=== PATIENT | female | born 1955 | race Caucasian/White ===

== ENCOUNTER → 2020-01-23 09:00 | Outpatient (CLI) | payer OTHER, SELFPAY ==
--- NOTE | 2020-01-23 | DI.MG.S_ITS ---
BILATERAL DIGITAL SCREENING MAMMOGRAM 3D/2D WITH CAD: 01/23/2020 CLINICAL: Routine screening. Family history of breast cancer. Comparison is made to exams dated: 01/19/2018 mammogram, 10/11/2014 mammogram, and 06/11/2013 mammogram - [facility]. The tissue of both breasts is heterogeneously dense. This may lower the sensitivity of mammography. Current study was also evaluated with a Computer Aided Detection (CAD) system. No significant masses, calcifications, or other findings are seen in either breast. There has been no significant interval change. IMPRESSION: NEGATIVE There is no mammographic evidence of malignancy. A 1 year screening mammogram is recommended. This exam was interpreted at Station ID: [id number]. NOTE: For mammograms, a report in lay terms will be sent to the patient. Approximately 15% of breast malignancies will not be visualized mammographically. In the management of a palpable breast mass, a negative mammogram must not discourage biopsy of a clinically suspicious lesion. Electronically Signed By: Torie pastor/[place]:01/23/2020 10:31:38 letter sent: Normal Exam ACR BI-RADS Category 1: Negative 3341F
== END ==
PROVIDERS: PCP Physician Assistant Medical; Referring Provider Physician Assistant Medical; Visit Provider Physician Assistant Medical
DX: Z12.31 Encounter for screening mammogram for malignant neoplasm of breast (principal); Z80.3 Family history of malignant neoplasm of breast
CPT/HCPCS: 77063; 77067

== ENCOUNTER → 2020-08-31 11:38 | Outpatient (CLI) | payer OTHER, SELFPAY | PROVIDERS: PCP Physician Assistant Medical; Visit Provider Nurse Practitioner | DX: R30.0 Dysuria (principal) | CPT/HCPCS: 87086 ==

== ENCOUNTER → 2021-03-28 09:17 | Outpatient (CLI) | payer OTHER, SELFPAY ==
--- NOTE | 2021-03-28 | DI.MG.S_ITS ---
BILATERAL DIGITAL SCREENING MAMMOGRAM 3D/2D WITH CAD: 03/28/2021 CLINICAL: Routine screening. Family history of breast cancer. Comparison is made to exams dated: 01/23/2020 mammogram, 01/19/2018 mammogram, 10/11/2014 mammogram, 06/11/2013 mammogram, and 04/07/2012 mammogram - [facility]. The tissue of both breasts is heterogeneously dense. This may lower the sensitivity of mammography. Current study was also evaluated with a Computer Aided Detection (CAD) system. No significant masses, calcifications, or other findings are seen in either breast. There has been no significant interval change. IMPRESSION: NEGATIVE There is no mammographic evidence of malignancy. A 1 year screening mammogram is recommended. This exam was interpreted at Station ID: [id number]. NOTE: For mammograms, a report in lay terms will be sent to the patient. Approximately 15% of breast malignancies will not be visualized mammographically. In the management of a palpable breast mass, a negative mammogram must not discourage biopsy of a clinically suspicious lesion. Electronically Signed By: Isidro rodriguez/[place]:03/30/2021 08:08:07 letter sent: Normal Exam ACR BI-RADS Category 1: Negative 3341F
== END ==
PROVIDERS: PCP Physician Assistant Medical; Referring Provider Physician Assistant Medical; Visit Provider Physician Assistant Medical
DX: Z12.31 Encounter for screening mammogram for malignant neoplasm of breast (principal); Z80.3 Family history of malignant neoplasm of breast
CPT/HCPCS: 77063; 77067

== ENCOUNTER → 2022-04-30 14:15 | Outpatient (CLI) | payer OTHER, SELFPAY ==
--- NOTE | 2022-04-30 | DI.MG.S_ITS ---
BILATERAL DIGITAL SCREENING MAMMOGRAM 3D/2D WITH CAD: 04/30/2022 CLINICAL: Routine screening. Family history of breast cancer. Comparison is made to exams dated: 03/28/2021 mammogram, 01/23/2020 mammogram, and 01/19/2018 mammogram - [facility]. The tissue of both breasts is heterogeneously dense. This may lower the sensitivity of mammography. Current study was also evaluated with a Computer Aided Detection (CAD) system. There is an oval asymmetry with a circumscribed margin in the right breast middle depth central to the nipple seen on the craniocaudal view only. No other significant masses, calcifications, or other findings are seen in either breast. IMPRESSION: INCOMPLETE: NEEDS ADDITIONAL IMAGING EVALUATION The oval asymmetry in the right breast is indeterminate. Additional views with possible ultrasound are recommended. This exam was interpreted at Station ID: [id number]. NOTE: For mammograms, a report in lay terms will be sent to the patient. Approximately 15% of breast malignancies will not be visualized mammographically. In the management of a palpable breast mass, a negative mammogram must not discourage biopsy of a clinically suspicious lesion. Electronically Signed By: Elizabeth jacome/[place]:04/30/2022 15:19:36 letter sent: Additional Imaging Needed ACR BI-RADS Category 0: Incomplete 3340F
== END ==
PROVIDERS: PCP Physician Assistant Medical; Referring Provider Internal Medicine; Visit Provider Physician Assistant Medical
DX: Z12.31 Encounter for screening mammogram for malignant neoplasm of breast (principal); Z80.3 Family history of malignant neoplasm of breast
CPT/HCPCS: 77063; 77067

== ENCOUNTER → 2022-05-27 12:54 | Outpatient (CLI) | payer OTHER, SELFPAY ==
--- NOTE | 2022-05-27 | DI.MG.S_ITS ---
UNILATERAL RIGHT DIGITAL DIAGNOSTIC MAMMOGRAM 3D/2D WITH ADDITIONAL VIEWS: 05/27/2022 CLINICAL: Additional evaluation requested from prior study. Comparison is made to exams dated: 04/30/2022 mammogram, 03/28/2021 mammogram, and 01/23/2020 mammogram - [facility]. The tissue of right breast is heterogeneously dense. This may lower the sensitivity of mammography. There is an oval asymmetry with a circumscribed margin in the right breast middle depth central to the nipple seen on the craniocaudal view only. This is less prominent. No other significant masses or calcifications are seen in the breast. IMPRESSION: INCOMPLETE: NEEDS ADDITIONAL IMAGING EVALUATION The oval asymmetry in the right breast has decreased in conspicuity and size on today's imaging, but remains indeterminate. An ultrasound is recommended for further evaluation and is scheduled to immediately follow this examination. Based on Tyrer-Cuzick model (a risk assessment model), the patient's lifetime risk is 28.2% and her 10 year risk is 13.9%. If a patient has an elevated risk, a more comprehensive evaluation should be considered and/or a referral to a genetic counselor. The [employer], [employer], and NCCN Guidelines advise the consideration of Breast MRI as an adjunct to screening mammography in patients whose Lifetime risk to develop breast cancer is 20% or higher. This exam was interpreted at Station ID: [id number]. NOTE: For mammograms, a report in lay terms will be sent to the patient. Approximately 15% of breast malignancies will not be visualized mammographically. In the management of a palpable breast mass, a negative mammogram must not discourage biopsy of a clinically suspicious lesion. Electronically Signed By: Brady Aguirre M.D. aty/:05/27/2022 14:34:03 ACR BI-RADS Category 0: Incomplete 3340F
--- NOTE | 2022-05-27 | DI.US.S_ITS ---
LIMITED ULTRASOUND OF RIGHT BREAST: 05/27/2022 CLINICAL: Patient returns for additional imaging over a suspected mass in the right breast. No prior exams were available for comparison. Color flow and real-time ultrasound of the right breast 6-9 o'clock region were performed. Cunha scale images of the real-time examination were reviewed. There are retroareolar ductal ectasia and a more prominent dilated duct in the right breast at 9 o'clock middle depth approximately 7cm from the nipple. This dilated duct displays internal echoes. Color flow imaging demonstrates that there is no vascularity present. This finding may or may not correlate with mammographic findings described in comparison exams. IMPRESSION: PROBABLY BENIGN The dilated duct in the right breast may correlate with oval asymmetry in the right breast and is probably benign. A follow-up right mammogram with possible right ultrasound in 6 months is recommended to demonstrate stability. Findings and recommendations were conveyed to the patient during today's evaluation. This exam was interpreted at Station ID: [id number]. Electronically Signed By: Brady hinkle/:05/27/2022 14:47:09 letter sent: Followup Recommended Ultrasound BI-RADS: 3 Probably benign
== END ==
PROVIDERS: PCP Physician Assistant Medical; Referring Provider Physician Assistant Medical; Visit Provider Physician Assistant Medical
DX: R92.8 Other abnormal and inconclusive findings on diagnostic imaging of breast (principal); N64.89 Other specified disorders of breast; N60.41 Mammary duct ectasia of right breast
CPT/HCPCS: 76642; 77065; G0279

== ENCOUNTER → 2023-02-22 09:29 | Outpatient (CLI) | payer OTHER, SELFPAY ==
--- NOTE | 2023-02-22 | DI.MG.S_ITS ---
BILATERAL DIGITAL DIAGNOSTIC MAMMOGRAM 3D/2D: 02/22/2023 CLINICAL: Short term follow up, due bilateral. Comparison is made to exams dated: 05/27/2022 mammogram, 04/30/2022 mammogram, 03/28/2021 mammogram, 05/27/2022 ultrasound, and 01/23/2020 mammogram - [facility]. Both breasts are heterogeneously dense, which may obscure small masses (category c / 51-75% glandular tissue). There is an asymmetry in the right breast middle depth central to the nipple seen on the craniocaudal view only. This is not significantly changed. No other significant masses, calcifications, or other findings are seen in either breast. IMPRESSION: PROBABLY BENIGN The asymmetry in the right breast is probably benign. A follow-up mammogram in 6 months is recommended to demonstrate continued stability. Based on Tyrer-Cuzick model (a risk assessment model), the patient's lifetime risk is 27.3% and her 10 year risk is 13.9%. If a patient has an elevated risk, a more comprehensive evaluation should be considered and/or a referral to a genetic counselor. The [place] [employer], [employer] [place], and NCCN Guidelines advise the consideration of Breast MRI as an adjunct to screening mammography in patients whose Lifetime risk to develop breast cancer is 20% or higher. This exam was interpreted at Station ID: [id number]. NOTE: For mammograms, a report in lay terms will be sent to the patient. Approximately 15% of breast malignancies will not be visualized mammographically. In the management of a palpable breast mass, a negative mammogram must not discourage biopsy of a clinically suspicious lesion. Electronically Signed By: Isidro Moreno M.D. [facility]/:02/22/2023 10:01:55 letter sent: Followup Recommended ACR BI-RADS Category 3: Probably benign 3343F
== END ==
PROVIDERS: PCP Physician Assistant Medical; Referring Provider Physician Assistant Medical; Visit Provider Physician Assistant Medical
DX: R92.8 Other abnormal and inconclusive findings on diagnostic imaging of breast (principal); N64.89 Other specified disorders of breast
CPT/HCPCS: 77066; G0279

== ENCOUNTER → 2023-07-11 12:48 | Outpatient (CLI) | payer OTHER, SELFPAY ==
--- NOTE | 2023-07-11 | DI.RAD.S_ITS ---
Bone Density Report Name: LUIS ARMANDO FLOR Age: 67 Sex: Female Ethnicity: White Date of : 1955 Indication: postmenopausal; screening for osteoporosis; Referring Provider: SUDHA SLATER Study: Bone densitometry was performed. Exam Date: July 11, 2023 Accession number: [id number] Bone Density: Region BMD T-score Z-score Classification AP Spine(L1-L4) 0.713 -3.0 -1.2 Osteoporosis Femoral Neck (Left) 0.674 -1.6 0.0 Osteopenia Total Hip (Left) 0.786 -1.3 0.0 Osteopenia Femoral Neck (Right) 0.567 -2.5 -1.0 Osteoporosis Total Hip (Right) 0.682 -2.1 -0.9 Osteopenia Total Hip Mean 0.734 -1.7 -0.5 Osteopenia World Health Organization criteria for BMD impression classify patients as: Normal (T-score at or above -1.0), Osteopenia (T-score between -1.0 and -2.5), or Osteoporosis (T-score at or below -2.5). 10-year Fracture Risk: FRAX not reported because: Some T-score for Spine Total or Hip Total or Femoral Neck at or below -2.5 Impression: The patient has osteoporosis, based on the Total Spine T-score. Discussion: INCREASED RISK OF FRACTURE. BONE DENSITY IS UNDESIRABLY LOW AT ONE OR MORE SKELETAL SITES, CONSISTENT WITH POSTMENOPAUSAL OSTEOPOROSIS. This patient's lowest T-score meets the World Health Organization's (WHO) criteria for osteoporosis at one or more sites (T-score -2.5 or below). In untreated patients, the risk of osteoporotic fracture increases approximately two-fold for each 1.0 SD decrease in T-score. Low bone density is not the only risk factor for fracture; also consider factors such as patient's age, frailty or poor health, risk of falling, risk of injury, previous osteoporotic fracture, family history of osteoporosis, cigarette smoking, low body weight, etc. Not everyone with low bone mineral density has osteoporosis; osteomalacia and other metabolic bone disorders should also be considered. Patients who have osteoporosis should be evaluated for specific diseases and conditions (secondary causes) that may cause or contribute to bone loss. The [place] [employer] Endocrinologists (AACE) and National Osteoporosis Foundation (NOF) recommend pharmacologic intervention for all postmenopausal women whose T-score is in this range. The patient should follow a healthful lifestyle (good nutrition with adequate calcium and vitamin D, and appropriate weight-bearing exercise). Follow-Up: Consider a repeat BMD and Vertebral Fracture Assessment (VFA) exam in 2 years or sooner if medically necessary, to reassess this patient's status. Reported by: FLORIDA MELENDEZ M.D. on 07/11/2023 1:13:00 PM.
== END ==
PROVIDERS: PCP Physician Assistant Medical; Referring Provider Physician Assistant Medical; Visit Provider Physician Assistant Medical
DX: Z78.0 Asymptomatic menopausal state (principal); Z13.820 Encounter for screening for osteoporosis; M81.0 Age-related osteoporosis without current pathological fracture
CPT/HCPCS: 77080

== ENCOUNTER → 2023-09-09 09:35 | Outpatient (CLI) | payer OTHER, SELFPAY ==
--- NOTE | 2023-09-09 | DI.MG.S_ITS ---
UNILATERAL RIGHT DIGITAL DIAGNOSTIC MAMMOGRAM 3D/2D: 09/09/2023 CLINICAL: Patient returns for a 6 month follow up of the right breast. Comparison is made to exams dated: 02/22/2023 mammogram, 05/27/2022 mammogram, 04/30/2022 mammogram, and 03/28/2021 mammogram - [facility]. The right breast is heterogeneously dense, which may obscure small masses (category c / 51-75% glandular tissue). There is a stable asymmetry in the right breast middle depth central to the nipple seen on the craniocaudal view only. No other significant masses or calcifications are seen in the breast. IMPRESSION: INCOMPLETE: NEEDS ADDITIONAL IMAGING EVALUATION The stable asymmetry in the right breast is indeterminate. A targeted ultrasound of the right breast is recommended and will be performed immediately following this exam. Based on Tyrer-Cuzick model (a risk assessment model), the patient's lifetime risk is 27.3% and her 10 year risk is 13.9%. If a patient has an elevated risk, a more comprehensive evaluation should be considered and/or a referral to a genetic counselor. The [place] [employer], [employer], and NCCN Guidelines advise the consideration of Breast MRI as an adjunct to screening mammography in patients whose Lifetime risk to develop breast cancer is 20% or higher. This exam was interpreted at Station ID: [id number]. NOTE: For mammograms, a report in lay terms will be sent to the patient. Approximately 15% of breast malignancies will not be visualized mammographically. In the management of a palpable breast mass, a negative mammogram must not discourage biopsy of a clinically suspicious lesion. Electronically Signed By: Torie Whitt M.D. lk/:09/09/2023 10:20:23 ACR BI-RADS Category 0: Incomplete 3340F
--- NOTE | 2023-09-09 | DI.US.S_ITS ---
ULTRASOUND OF RIGHT BREAST: 09/09/2023 CLINICAL: Patient returns today to evaluate a focal asymmetry in the right breast. Comparison is made to exams dated: 09/09/2023 mammogram, 02/22/2023 mammogram, 05/27/2022 ultrasound, 05/27/2022 mammogram, 04/30/2022 mammogram, and 03/28/2021 mammogram - [facility]. Ultrasound of the right breast was performed on the area of interest. Cunha scale images of the real-time examination were reviewed. There is a stable dilated duct in the right breast at 9 o'clock middle depth. Color flow imaging demonstrates that there is no vascularity present. This may correspond with the mammographic abnormality. IMPRESSION: PROBABLY BENIGN The stable dilated duct in the right breast is probably benign. A follow-up mammogram and an ultrasound in 12 months is recommended. This exam was interpreted at Station ID: [id number]. Electronically Signed By: Torie pastor/:09/09/2023 10:57:22 letter sent: Followup Recommended Ultrasound BI-RADS: 3 Probably benign
== END ==
PROVIDERS: PCP Physician Assistant Medical; Referring Provider Physician Assistant Medical; Visit Provider Physician Assistant Medical
DX: R92.8 Other abnormal and inconclusive findings on diagnostic imaging of breast (principal); N64.89 Other specified disorders of breast
CPT/HCPCS: 76642; 77065; G0279

== ENCOUNTER 2023-12-03 19:18 | Emergency (ER) | payer OTHER, SELFPAY ==
[2023-12-03 19:21] VITALS: BP 163/78; PULSE 113; RESP 16; TEMP 36.8; O2SAT 98; BMI 21.9
[2023-12-03] MEDS: ONDANSETRON 4 MG ODT SL (19:38)
[2023-12-03] MEDS: ONDANSETRON 4 MG ODT PREPACK 1 BOTTLE MISC (23:14)
[2023-12-03 23:15] VITALS: BP 156/80; PULSE 87; RESP 16; O2SAT 98
--- NOTE | 2023-12-03 23:15 | ED_ITS ---
HPI - Nausea/Vomiting/Diarrhea General Chief complaint: Nausea/Vomiting/Diarrhea Stated complaint: Shingles, [place], Dehydrated Time Seen by Provider: 12/03/23 19:32 Source: patient Mode of arrival: Ambulatory History of Present Illness HPI Narrative: 68-year-old female who presents with nausea for 1 day and recently completed course of valacyclovir for shingles of right anterior chest and right posterior upper back. Patient reports checking in with [facility] on-call for her symptoms of nausea and due to her chest pain associated with her shingles was encouraged to come to the emergency department to have a ?cardiac rule out?. Patient denies chest pain beyond chest discomfort associated with shingles infection. No other complaints or associated symptoms noted. Patient arrives via private vehicle. Patient is awake, alert, in no apparent distress and maintaining her own airway. Related Data Allergies Allergy/AdvReac Type Severity Reaction Status Date / Time No Known Drug Allergies Allergy Verified 12/03/23 19:21 Review of Systems Review of Systems Narrative: See HPI for pertinent positives, otherwise review of systems negative Patient History Medical History (Updated 12/18/23 @ 00:01 by ) No significant medical problems Social History Smoking Status: Former smoker Smoking Status: Former smoker Substance Use Type: does not use Exam Narrative Exam Narrative: General:? Awake, alert, lying comfortably in bed during both exam and interview and in no apparent distress HEENT:? Normocephalic, atraumatic, pupils equal and reactive to light, neck is supple, normal range of motion Chest:? Normal to inspection, no crepitus, no tenderness Cardiovascular:? 2+ radial bilaterally, regular rhythm/rate. Pulmonary:? Regular respirations, no respiratory distress, lungs clear to auscultation bilateral Abdomen:? Nondistended Back: ?No midline spinal tenderness, normal range of motion, no step-off deformities :? Exam deferred Skin:? Warm, dry, intact, healing macular papular rash of right-sided paraspinal thoracic and right anterior chest Extremities:? No deformities of bilateral upper/lower extremities, nontender Neuro:? No focal neurological deficits, moving all 4 extremities equally, normal gait, normal speech Psych:? Normal mood, normal affect normal attention Initial Vital Signs Initial Vital Signs: Vital Signs Temperature 98.3 F 12/03/23 19:21 Pulse Rate 113 H 12/03/23 19:21 Respiratory Rate 16 12/03/23 19:21 Blood Pressure 163/78 H 12/03/23 19:21 Pulse Oximetry 98 12/03/23 19:21 Oxygen Delivery Method Room Air 12/03/23 19:21 Course Orders Ordered: Discontinued Medications Ondansetron HCl (Ondansetron 4 Mg Odt) 4 mg SL NOW ONE Stop: 12/03/23 19:33 Last Admin: 12/03/23 19:38 Dose: 4 mg Documented By: SEAMUS Ondansetron HCl (Ondansetron 4 Mg Odt Prepack) 1 bottle MISC DIRECTED ONE Stop: 12/03/23 23:09 Last Admin: 12/03/23 23:14 Dose: 1 bottle Documented By: CAIO Vital Signs Vital signs: Vital Signs - 8 hr 12/03/23 19:21 Temperature 98.3 F Pulse Rate 113 H Respiratory Rate 16 Blood Pressure 163/78 H Pulse Oximetry 98 Oxygen Delivery Method Room Air MDM - Nausea/Vomiting/Diarrhea Differential Diagnosis Differential diagnosis: Likely other (Shingles, chest pain, ACS) Lab Data Labs: Urine Dip Bedside Urine Glucose Negative Bedside Urine Bilirubin - Negative Bedside Urine Ketone - Negative Urine Specific Lowry 1.010 Bedside Urine Occult Blood - Negative Bedside Urine pH 6.0 Bedside Urine Protein - Negative Bedside Urine Urobilinogen - Negative Bedside Urine Nitrite - Negative Bedside Urine Leukocytes - Negative Esterase MDM Narrative Medical decision making narrative: Patient presents with history of shingles and reported chest discomfort with insurance company encouraging patient to come in for cardiac rule out. Patient currently has no chest pain and symptoms are consistent with chest wall discomfort secondary to resolving shingles infection. Discussed concerns with patient and patient requests discharge home. CV follow-up recommended as needed. Return precautions given. Patient discharged home in stable condition. Discharge Plan Departure Patient Disposition: Home Clinical Impression: Nausea, Shingles Instructions: DI for Shingles, DI for Nausea -- Adult Referrals: Donna Manuel PA-C [Primary Care Provider] - As soon as possible Stand Alone Forms: Patient Portal/API
== END 2023-12-03 23:17 | disposition home or self-care (01) ==
PROVIDERS: Emergency Provider Emergency Medicine; PCP Physician Assistant Medical
DX: B02.9 Zoster without complications (principal)
CPT/HCPCS: 81003; 99283

== ENCOUNTER → 2024-10-24 12:02 | Outpatient (CLI) | payer OTHER, SELFPAY ==
--- NOTE | 2024-10-24 12:03 | DI.US.S_ITS ---
LIMITED ULTRASOUND OF RIGHT BREAST: 10/24/2024 CLINICAL: Follow up probably benign, BR3 finding in the right breast. Comparison is made to exams dated: 10/24/2024 mammogram, 09/09/2023 ultrasound, 09/09/2023 mammogram, 02/22/2023 mammogram, 05/27/2022 ultrasound, and 05/27/2022 mammogram - [facility]. Real-time ultrasound of the right breast 9 o'clock region was performed. Cunha scale images of the real-time examination were reviewed. There is a stable mildly ectatic duct in the right breast at 9 o'clock, 7 cm from the nipple, stable since 05/27/2022. This may correspond to the mammographic finding. IMPRESSION: BENIGN Right breast focal asymmetry and mildly ectatic duct at 9 o'clock position are stable since April 2022. Given these findings have demonstrated over 2 year stability, it is consistent with a benign process. No mammographic or sonographic evidence of malignancy. A 1 year screening mammogram is recommended. Findings and recommendations were conveyed to the patient during today's evaluation. This exam was interpreted at Station ID: [id number]. Electronically Signed By: Flores Solo M.D., Ph.D. eb/:10/24/2024 13:19:48 letter sent: Normal Exam ACR BI-RADS Category 2: Benign
--- NOTE | 2024-10-24 12:03 | DI.MG.S_ITS ---
BILATERAL DIGITAL DIAGNOSTIC MAMMOGRAM 3D/2D SHORT-TERM FOLLOW-UP: 10/24/2024 CLINICAL: Short term follow up of the right breast, due for bilateral imaging. Comparison is made to exams dated: 09/09/2023 mammogram, 02/22/2023 mammogram, 05/27/2022 mammogram, and 04/30/2022 mammogram - [facility]. The breasts are heterogeneously dense, which may obscure small masses (category c / 51-75% glandular tissue). There is a stable asymmetry in the right breast middle depth central to the nipple seen on the craniocaudal view only, not significantly changed since 05/27/2022. No other significant masses, calcifications, or other findings are seen in either breast. IMPRESSION: INCOMPLETE: NEED ADDITIONAL IMAGING EVALUATION Right breast asymmetry in the middle central depth, stable since April 2022. An ultrasound is recommended for further evaluation and is scheduled to immediately follow this examination. Based on Tyrer-Cuzick model (a risk assessment model), the patient's lifetime risk is 26.2% and her 10 year risk is 13.8%. If a patient has an elevated risk, a more comprehensive evaluation should be considered and/or a referral to a genetic counselor. The [place] [employer], [place] [employer], and NCCN Guidelines advise the consideration of Breast MRI as an adjunct to screening mammography in patients whose Lifetime risk to develop breast cancer is 20% or higher. This exam was interpreted at Station ID: [id number]. NOTE: For mammograms, a report in lay terms will be sent to the patient. Approximately 15% of breast malignancies will not be visualized mammographically. In the management of a palpable breast mass, a negative mammogram must not discourage biopsy of a clinically suspicious lesion. Electronically Signed By: Flores Solo M.D., Ph.D. eb/:10/24/2024 13:06:33 letter sent: Additional Imaging Needed ACR BI-RADS Category 0: Incomplete: Need Additional Imaging Evaluation
== END ==
PROVIDERS: PCP Physician Assistant Medical; Referring Provider Physician Assistant Medical; Visit Provider Physician Assistant Medical
DX: R92.8 Other abnormal and inconclusive findings on diagnostic imaging of breast (principal); R92.333 Mammographic heterogeneous density, bilateral breasts; N64.89 Other specified disorders of breast
CPT/HCPCS: 76642; 77066; G0279

== ENCOUNTER → 2025-11-20 11:22 | Outpatient (CLI) | payer OTHER, SELFPAY ==
--- NOTE | 2025-11-20 11:23 | DI.MG.S_ITS ---
MM screening mammo BI: 11/20/2025. BI-RADS: 2 CLINICAL: 70-year old female for bilateral screening mammogram. Tyrer-Cuzick lifetime risk of 19.0%. Current reported family history of breast cancer: mother and sister. The patient had a prior left breast biopsy. PRIOR EXAMS 10/24/2024, 09/09/2023, 02/22/2023, 05/27/2022, MAMMOGRAPHY TECHNIQUE: 2D and 3D (tomosynthesis) digital mammographic views obtained, with additional images as needed for full coverage. Current study was also evaluated with a Computer Aided Detection (CAD) system. DENSITY C. The breasts are heterogeneously dense, which may obscure small masses. MAMMOGRAPHY FINDINGS Right: No suspicious mass, asymmetry, microcalcification, or other abnormality seen. Left: Benign-appearing post-surgical changes noted on the left. There are no suspicious masses, calcifications, or other findings in the breast. IMPRESSION: Right * No evidence of malignancy. Left * No evidence of malignancy with benign findings. RECOMMENDATIONS Bilateral * Annual screening mammography. OVERALL ASSESSMENT CATEGORY BI-RADS-2: Benign. The [employer] [employer] recommends annual screening mammography beginning at age 40 for women with average risk of breast cancer. ELECTRONICALLY SIGNED: Keryr Castellano M.D. on 11/20/2025 at 12:48:26 PM PT Interpreting Station ID: [id number]
== END ==
LOC: MAMMO 11:23
PROVIDERS: PCP Physician Assistant Medical; Referring Provider Family Medicine; Visit Provider Physician Assistant Medical
DX: Z12.31 Encounter for screening mammogram for malignant neoplasm of breast (principal); R92.333 Mammographic heterogeneous density, bilateral breasts; Z80.3 Family history of malignant neoplasm of breast
CPT/HCPCS: 77063; 77067